=== PATIENT | male | born 1945 | race Caucasian/White ===

== ENCOUNTER 2017-12-31 10:12 | Emergency (ER) | payer OTHER ==
[~2017-12-31] VITALS: Ht 170.2 cm; Wt 90.7 kg
--- NOTE | 2017-12-31 11:13 | ED GI/GU/ABDOMINAL COMPLAINT ---
History of Present Illness General Chief Complaint: Male Genitourinary Problems Stated Complaint: URINARY RETENTION Source: patient Exam Limitations: no limitations Vital Signs & Intake/Output Vital Signs & Intake/Output Vital Signs Date Time Temp Pulse Resp B/P B/P Pulse O2 O2 Flow FiO2 Mean Ox Delivery Rate 12/31 1552 84 20 134/64 98 12/31 1415 97.1 82 18 130/69 99 Room Air 12/31 1039 96.7 88 18 128/68 99 Room Air Allergies Coded Allergies: No Known Drug Allergies (Intermediate, NONE 12/31/17) Reconcile Medications Acetaminophen (Tylenol) 325 MG TABLET 3 TAB PO Q8H PAIN (Reported) Ascorbic Acid (C-1000) 1,000 MG TABLET 1 TAB PO QAM SUPPLEMENT (Reported) Aspirin (Ecotrin*) 81 MG TABLET.DR 1 TAB PO Q12H HEART/BLOOD (Reported) Atenolol 25 MG TABLET 1 TAB PO QAM BP (Reported) Celecoxib 200 MG CAPSULE 1 CAP PO QAM PAIN/INFLAMMATION (Reported) Gabapentin 300 MG CAPSULE 1 CAP PO BID NERVE PAIN (Reported) Hydromorphone HCl 2 MG TABLET 1-2 TAB PO Q4-6H PRN PAIN (Reported) Losartan Potassium 50 MG TABLET 1 TAB PO QAM BP (Reported) Multiple Vitamin (Multivitamins) 1 EACH TABLET 1 TAB PO QAM SUPPLEMENT ( Reported) Speer-3 Acid Ethyl Esters 1 GRAM CAPSULE 1 GM PO QAM CHOLESTEROL/TRIGLYCERIDES (Reported) Pantoprazole Sodium 40 MG TABLET.DR 1 TAB PO DAILY AC GI (Reported) Pioglitazone HCl/Metformin HCl (Actoplus Met 15 MG-850 MG Tab) 15 MG-850 MG TABLET 1 TAB PO BID DM (Reported) Pravastatin Sodium 40 MG TABLET 1 TAB PO QHS CHOLESTEROL (Reported) Sennosides/Docusate Sodium (Senna S Tablet) 8.6 MG-50 MG TABLET 2 TAB PO BID GI (Reported) Tamsulosin HCl (Flomax) 0.4 MG CAP.ER.24H 1 CAP PO BID (Reported) Tramadol HCl 50 MG TABLET 1 TAB PO AD PRN PAIN (Reported) Triage Note: C/O DIFFICULTY URINATING SINCE 12/12, (HAD LEFT KNEE REPLACMENT ON 12/12). CATHETERIZED MULTIPLE TIMES POST OP, RAMIREZ PLACED 8 DAYS AGO, REMOVED YESTERDAY. C/O BURNING PAIN ON URINATION, AND URINATING IN VERY SMALL AMOUNTS. Triage Nurses Notes Reviewed? yes HPI: 72 yo M PMH HTN, HLD, DM presenting with urinary retention. Patient had left knee replacement on 12/12, post-operative course complicated by urinary retention, required multiple straight catheterizations, ramirez placed 8 days ago removed yesterday,, patient is unable to void small amounts of urine since that time, some burning and discomfort with urination, suprapubic pressure/pain. Denies associated fevers, chills, chest pain, short of breath, nausea, vomiting, diarrhea, constipation, bloody stools, abdominal pain, flank pain, hematuria. (Donnie Hdz MD) Past History Travel History Traveled to [place] past 21 day No Medical History Any Pertinent Medical History? see below for history Cardiovascular: hypertension, hyperlipidemia Musculoskeletal: ARTHRITIS Endocrine: diabetes Surgical History Surgical History: knee replacement Psychosocial History What is your primary language Yi Tobacco Use: Never used ETOH Use: denies use Family History Hx Contributory? Yes (Donnie Hdz MD) Review of Systems Review of Systems Constitutional: Reports: no symptoms. EENTM: Reports: no symptoms. Respiratory: Reports: no symptoms. Cardiovascular: Reports: no symptoms. GI: Reports: see HPI. Genitourinary: Reports: see HPI. Musculoskeletal: Reports: no symptoms. Skin: Reports: no symptoms. Neurological/Psychological: Reports: no symptoms. Hematologic/Endocrine: Reports: no symptoms. Immunologic/Allergic: Reports: no symptoms. All Other Systems: Reviewed and Negative (Donnie Hdz MD) Physical Exam Physical Exam General Appearance: well developed/nourished, no apparent distress, alert, awake Head: atraumatic Eyes: Bilateral: PERRL, EOMI. Ears, Nose, Throat, Mouth: moist mucous membrane Neck: normal inspection, full range of motion Respiratory: normal breath sounds, no respiratory distress, lungs clear Gastrointestinal: normal bowel sounds, soft, non-tender Comments: Abdomen: Soft and nontender to palpation throughout, no CVA tenderness to palpation Core Measures ACS in differential dx? No Sepsis Present: No Sepsis Focused Exam Completed? No (Donnie Hdz MD) Progress Differential Diagnosis: AAA, AMI, appendicitis, biliary colic, bowel obstruction , colon cancer, cholecystitis, diverticulitis, epididymitis, esophageal varices, gastritis, hepatitis, hernia, hemorrhoids, ischemic bowel, inflamm bowel dis, Amber-Rajwinder tear, orchitis, pancreatitis, prostatitis, peptic ulcer, PUD/GERD, perforated viscous, pyelonephritis, SBO, STD, testicular torsion, ureterolithiasis, urinary retention, urethritis, UTI/pyelo Plan of Care: Orders Procedure Date/time Status Ramirez, Insertion/Removal/Asses 12/31 1405 Active CULTURE,URINE 12/31 1405 Active URINALYSIS 12/31 1129 Complete Laboratory Tests 12/31/17 1149: Urine Color YEL, Urine Clarity CLEAR, Urine pH 6.0, Ur Specific Diana 1.010, Urine Protein NEG, Urine Ketones NEG, Urine Nitrite NEG, Urine Bilirubin NEG, Urine Urobilinogen 0.2, Ur Leukocyte Esterase NEG, Ur Microscopic SEDIMENT EXAMINED, Urine RBC 25-50 H, Urine WBC RARE, Urine Hemoglobin MOD H, Urine Glucose NEG Microbiology 12/31 1149 URINE ROUT: Urine Culture - RECD Physician MDM:72 yo M PMH HTN, HLD, DM presenting with urinary retention. VSS, abdominal and flank exam is benign. DDx: Urinary retention secondary to BPH, urinary retention secondary to hematuria/clots, urinary retention secondary to anesthesia side effects, low concern cauda equina syndrome. Bedside ultrasound with [id number] mL of urine, large hyperechoic mass in lower bladder with some shadowing, ?calculus vs. Mass. UA with 2550 RBCs, likely secondary to recent tract manipulation, no white blood cells or bacteria to suggest infection. Abdominal x-ray with radiolucent structure in bladder, formal ultrasound with mobile hyperechoic mass thought to be bladder calculus measuring 2.4 cm. Patient voided several times in ED with small amounts of urine, repeat bladder ultrasound showed approximatly 500 mL of urine in distended bladder. I suspect the patient had a renal calculus that formed around the time of his Ramirez placement or multiple catheterizations for his recent surgery, this bladder calculi appears to be intermittently obstructing his urethra outflow tract. Discussed with Dr. Hector (concrete hopper operator for Dr. Pulido), recommended repeat Ramirez placement, recommended prophylactic dose of ceftriaxone given recent left knee replacement to prevent hematogenous seeding of joint by urinary lay during ramirez placement. IV placed, ceftriaxone given. Ramirez placed, patient given leg bag, plan and follow-up with urology as scheduled on Wednesday for further evaluation and possible treatment of bladder calculus. Discharged with return precautions for signs of urinary tract infection. Initial ED EKG: none (Wilder SALINAS,Donnie) Departure Departure Disposition: HOME OR SELF CARE Condition: Stable Clinical Impression Primary Impression: Bladder calculus Secondary Impressions: Urinary retention Referrals: Sosa Villarreal APRN (PCP/Family) Additional Instructions: Keep ramirez catheter in place until you follow up with Dr. Sanders. Return to the ED for fevers. Return to the ED for any new, worsening, or concerning symptoms. Departure Forms: Customer Survey General Discharge Information (Donnie Hdz MD) PA/LEAD DENTAL ASSISTANT Co-Sign Statement Statement: ED Attending supervision documentation- [] I saw and evaluated the patient. I have also reviewed all the pertinent lab results and diagnostic results. I agree with the findings and the plan of care as documented in the PA's/LEAD DENTAL ASSISTANT's documentation. [] I have reviewed the ED Record and agree with the PA's/LEAD DENTAL ASSISTANT's documentation. [] Additions or exceptions (if any) to the PAs/LEAD DENTAL ASSISTANT's note and plan are summarized below: [] Resident Co-Sign Statement Statement: ED Attending supervision documentation- I saw and evaluated the patient. I have also reviewed all the pertinent lab results and diagnostic results. I agree with the findings and the plan of care as documented in the Resident's documentation. x I have reviewed the ED Record and agree with the Resident's documentation. [] Additions or exceptions (if any) to the Resident's note and plan are summarized below: [] (Rose Marie SALINAS,Uche)
--- NOTE | 2017-12-31 13:44 | RADIOLOGY REPORT ---
EXAMINATION: XR ABDOMEN CLINICAL INDICATION: Bladder calculus. COMPARISON: KUB done on 07/11/2014. TECHNIQUE: AP view of the abdomen. FINDINGS: There is a 0.7 cm maximum dimension radiodensity seen projecting over the right renal outline, consistent with a right renal calculus. There is a 1.5 cm spiculated radiodensity seen within the mid pelvis, consistent with vesical calculus. Partially included right hip prosthesis appear intact. The bowel loops are unremarkable. IMPRESSION: Radiopaque subcentimeter right renal and 1.5 cm urinary bladder calculi.
--- NOTE | 2017-12-31 13:47 | ULTRASOUND REPORT ---
EXAMINATION: US PELVIS, LIMITED CLINICAL INFORMATION: 72-year-old male with suspected bladder mass. COMPARISON: KUB done earlier today. TECHNIQUE: Ultrasound of the urinary bladder. FINDINGS: Concordant with the prior KUB finding, there is an echogenic mobile abnormality identified, associated with acoustic shadowing, measures 2.4 x 1.4 x 2.6 cm, consistent with vesical calculus. IMPRESSION: 2.4 cm maximum dimension vesical calculus.
[2017-12-31] MEDS ORDERED: ASPIRIN EC81 M1 PO (13:49)
[2017-12-31] MEDS ORDERED: TYLENOL325 M1 PO (13:49)
[2017-12-31] MEDS ORDERED: SENNA S TABLET1 EACH PO (13:50)
[2017-12-31] MEDS ORDERED: PANTOPRAZOLE SO40 M1 PO (13:50)
[2017-12-31] MEDS ORDERED: HYDROMORPHONE HC2 M1 PO (13:50)
[2017-12-31] MEDS ORDERED: FLOMAX0.4 M1 PO (13:51)
[2017-12-31] MEDS ORDERED: CELECOXIB200 M1 PO (13:51)
[2017-12-31] MEDS ORDERED: ATENOLOL25 M1 PO (13:51)
[2017-12-31] MEDS ORDERED: GABAPENTIN300 M2 PO (13:52)
[2017-12-31] MEDS ORDERED: LOSARTAN POTASS50 M1 PO (13:52)
[2017-12-31] MEDS ORDERED: MULTIVITAMINS1 EAC9 PO (13:52)
[2017-12-31] MEDS ORDERED: OMEGA-3 ACID ETH1 GM PO (13:53)
[2017-12-31] MEDS ORDERED: ACTOPLUS MET 11 EAC1 PO (13:53)
[2017-12-31] MEDS ORDERED: PRAVASTATIN SOD40 M2 PO (13:54)
[2017-12-31] MEDS ORDERED: C-10001000 MG PO (13:54)
[2017-12-31] MEDS ORDERED: TRAMADOL HCL50 M1 PO (13:56)
[2017-12-31 15:52] VITALS: BP 134/64
== END 2017-12-31 15:46 ==
LOC: ERH 10:12
DX: N21.0 Calculus in bladder (principal)
CPT/HCPCS: 74018; 81001; 87086; 96374; J0696

== ENCOUNTER → 2018-01-18 | Day surgery (SDC) | payer OTHER ==
[~2018-01-18] VITALS: Ht 170.2 cm; Wt 90.7 kg
[~2018-01-18] MED LIST: ACTOPLUS MET 11 EAC1 PO; ASPIRIN EC81 M1 PO; ATENOLOL25 M1 PO; C-10001000 MG PO; CELECOXIB200 M1 PO; FLOMAX0.4 M1 PO; GABAPENTIN300 M2 PO; HYDROMORPHONE HC2 M1 PO; LOSARTAN POTASS50 M1 PO; MULTIVITAMINS1 EAC9 PO; OMEGA-3 ACID ETH1 GM PO; PANTOPRAZOLE SO40 M1 PO; PRAVASTATIN SOD40 M2 PO; SENNA S TABLET1 EACH PO; TRAMADOL HCL50 M1 PO; TYLENOL325 M1 PO
--- NOTE | 2018-01-18 16:24 | Operative Report ---
Operative/Inv Procedure Report Surgery Date: 01/18/18 Name of Procedure: Cystoscopy and laser lithotripsy of bladder stone Pre-Operative Diagnosis: Urinary retention, BPH, Bladder stone Post-Operative Diagnosis: Same Estimated Blood Loss: less than 50ml Surgeon/Customer Advocate: Margaret SALINAS,Hugo Lowe Anesthesia: laryngeal mask airway Drains: 22 Argentine three-way Allen catheter Specimens: Urine culture and bladder stone fragments Complications: None Condition: Stable Operative Indication: This patient had a left knee replacement little over one month ago. Postoperatively he had urinary retention. He failed several voiding trials. He underwent an abdominal ultrasound as well as an office cystoscopy. This revealed prostatic hypertrophy and a 2.5 cm stone in the bladder. Patient was advised to have laser lithotripsy of the bladder stone and TURP in an effort to treat his urinary retention. However the patient only consented to laser lithotripsy of bladder stone and did not want to have any prostate surgery done. Operative/Procedure Note Note: The patient was taken to the cystoscopy room and identified. He was placed in supine position on the cystoscopy table. Timeout was executed appropriately with the patient awake. Gen. anesthesia was induced via LMA. He was then placed in the dorsolithotomy position and prepped and draped in usual fashion for cystoscopy. A surgical pause was executed appropriately. 2 g of Ancef was given. The patient previously started on Cipro at home couple days ago. The 22 Argentine cystoscope sheath was placed into the bladder direct vision using the 30 lens. Anterior urethra was normal. The prostatic urethra showed bilateral lateral lobe prostatic hypertrophy. There was at least partial bladder outlet obstruction. The prostate was 3.5 cm in length. The bladder was left full and the cystoscope removed. The continuous flow cystoscope was placed into the bladder using the visual obturator. Next the 1000 holmium laser fiber was placed through the continuous flow cystoscope. The bladder stone was fragmented into multiple small fragments. Using Ellik evacuator all stone fragments were irrigated from the bladder. Cystoscopy revealed no remaining stone fragments. It was some bleeding from the prostatic urethra. Because of this it and after the cystoscope was removed and a 22 Argentine three-way Allen catheter was inserted and continuous bladder irrigation begun with light pink drainage. Patient tolerated the procedure well and as completion was taken to recovery room in stable condition. Discharge Disposition: PACU
== END ==
LOC: STS 01:22
DX: N21.0 Calculus in bladder (principal); N40.1 Benign prostatic hyperplasia with lower urinary tract symptoms; R33.8 Other retention of urine; R39.12 Poor urinary stream; I10 Essential (primary) hypertension; E11.9 Type 2 diabetes mellitus without complications; Z79.84 Long term (current) use of oral hypoglycemic drugs; Z87.891 Personal history of nicotine dependence
CPT/HCPCS: 87086; J0690; J1100; J2250; J2405